=== PATIENT | female | born 1980 | race Hispanic/Latino ===

== ENCOUNTER 2024-10-08 18:34 | Emergency (ER) | payer SELFPAY ==
[~2024-10-08] VITALS: Ht 157.5 cm; Wt 82.8 kg
[2024-10-08 18:40] VITALS: PULSE 91; RESP 20; TEMP 98.6; O2SAT 95
[2024-10-08] MEDS ORDERED: LANTUS 3ML100 UNITS/ SQ (19:01)
[2024-10-08] MEDS ORDERED: BACTRIM DS TAB1 EACH PO (19:01)
== END 2024-10-08 19:07 | disposition home or self-care (01) ==
LOC: FSED 18:53
DX: L03.116 Cellulitis of left lower limb (principal); W01.0XXA Fall on same level from slipping, tripping and stumbling without subsequent striking against object, initial encounter; Y93.01 Activity, walking, marching and hiking; Y92.89 Other specified places as the place of occurrence of the external cause; E11.65 Type 2 diabetes mellitus with hyperglycemia
CPT/HCPCS: 36415; 82948; 99284